=== PATIENT | female | born 1995 | race African-American/Black ===

== ENCOUNTER 2017-01-13 18:07 | Emergency (ER) | payer MEDICAID ==
[~2017-01-13] VITALS: Ht 167.6 cm; Wt 54.0 kg
[2017-01-13] MEDS ORDERED: CYCLOBENZAPRINE 10MG TABLET PO ONE (19:45)
[2017-01-13] MEDS ORDERED: KETOROLAC 60MG/2ML VIAL IM ONE (19:45)
[2017-01-13 20:18] VITALS: BP 106/72
== END 2017-01-13 21:01 | disposition home or self-care (01) ==
LOC: ER 20:56
DX: R51 Headache (principal); M54.2 Cervicalgia; J45.909 Unspecified asthma, uncomplicated; V49.59XA Passenger injured in collision with other motor vehicles in traffic accident, initial encounter; Y93.89 Activity, other specified; Y92.89 Other specified places as the place of occurrence of the external cause; Y99.8 Other external cause status
CPT/HCPCS: 81025; 96372; 99283; J1885